=== PATIENT | female | born 1965 | race Caucasian/White ===

== ENCOUNTER 2017-11-06 15:17 | Inpatient (IN) | payer MEDICAID ==
[~2017-11-06] VITALS: Ht 162.6 cm; Wt 72.6 kg
[2017-11-06 15:29] VITALS: BP 124/70
[2017-11-06] MEDS ORDERED: LORazepam 2 MG TABLET PO PRN (16:00)
[2017-11-06] MEDS ORDERED: ZOLPIDEM TARTRATE 10 MG TABLET PO PRN (16:00)
[2017-11-06] MEDS ORDERED: HALOPERIDOL 5 MG TABLET PO PRN (16:00)
[2017-11-06] MEDS ORDERED: LEVO50 PO (16:45)
[2017-11-06] MEDS ORDERED: MUPI15CR TP (16:45)
[2017-11-06] MEDS ORDERED: NORG1TAB12 PO (16:45)
[2017-11-06] MEDS ORDERED: IBUP-1506 PO (16:45)
[2017-11-06] MEDS ORDERED: GABA-531 PO (16:45)
[2017-11-06] MEDS ORDERED: VITAD1000 PO (16:45)
[2017-11-06] MEDS ORDERED: PSYL575P4 PO (16:45)
[2017-11-06] MEDS ORDERED: ACET-66 PO (16:45)
[2017-11-06] MEDS ORDERED: CYCL10 PO (16:45)
[2017-11-06] MEDS ORDERED: CLIN30GE14 TP (16:45)
[2017-11-06] MEDS ORDERED: BENZ142C8 TP (16:45)
[2017-11-06] MEDS ORDERED: MIRALAX PO (16:45)
[2017-11-06] MEDS ORDERED: KETO15CR2 TP (16:45)
[2017-11-06] MEDS ORDERED: MECL-111 PO (16:45)
[2017-11-06] MEDS ORDERED: LITH300T29 PO (16:45)
[2017-11-06] MEDS ORDERED: LIDO1KIT TD (16:45)
[2017-11-06 16:59] VITALS: BP 118/70
[2017-11-06] MEDS ORDERED: ACETAMINOPHEN 500 MG TABLET PO PRN (18:15)
[2017-11-06] MEDS ORDERED: MAG HYDROX/AL HYDROX/SIMETH ES 30 ML SUSPENSION UDCUP PO PRN (18:30)
[2017-11-06] MEDS ORDERED: LOPERAMIDE HCL 2 MG CAPSULE PO PRN (18:30)
[2017-11-06] MEDS ORDERED: ALBUTEROL SULFATE HFA 90 MCG/PUFF 8 GM INHALER IH PRN (18:30)
[2017-11-06] MEDS ORDERED: MAGNESIUM HYDROXIDE SUSPENSION 30 ML UDCUP PO PRN (18:30)
[2017-11-06] MEDS ORDERED: PETROLATUM,WHITE 71 GM JELLY TP PRN (18:30)
[2017-11-06] MEDS ORDERED: BENZOCAINE/MENTHOL LOZENGE MM PRN (18:30)
[2017-11-06] MEDS ORDERED: ONDANSETRON HCL 4 MG TABLET PO PRN (18:30)
[2017-11-06] MEDS ORDERED: CloNIDine HCL 0.1 MG TABLET PO PRN (18:30)
[2017-11-06] MEDS ORDERED: BACITRACIN 28.4 GM OINTMENT TP PRN (18:30)
[2017-11-06] MEDS: GABAPENTIN 300 MG CAPSULE PO SCH (20:36)
[2017-11-06] MEDS: IBUPROFEN 400 MG TABLET PO PRN (20:37)
[2017-11-06] MEDS ORDERED: -LIDODERM PATCH NOTE- MISC SCH (21:00)
[2017-11-06] MEDS ORDERED: LITHIUM CARBONATE 600 MG CAPSULE PO SCH ×2 (21:00)
[2017-11-06] MEDS: POLYETHYLENE GLYCOL 3350 17 GM PACKET PO PRN (21:32)
[2017-11-07] MEDS: LIDOCAINE HCL 5% 36 GM OINTMENT TP PRN (04:08)
[2017-11-07 05:14] VITALS: BP 118/79
[2017-11-07] MEDS: LEVOTHYROXINE SODIUM 50 MCG TABLET PO SCH (06:35)
[2017-11-07 07:43] LABS: BASOPHILS % (AUTO) 0.3 % (0.0-2.0); EOSINOPHILS % (AUTO) 1.4 % (1.0-6.0); HEMATOCRIT 38.2 % (36-46); HEMOGLOBIN 13.5 g/dL (12.0-16.0); LYMPHOCYTES # (AUTO) 1.4 K/uL (1.0-4.8); LYMPHOCYTES % (AUTO) 23.8 % (22.0-44.0); MEAN CORPUSCULAR HEMOGLOBIN 33.5 pg (26.0-34.0); MEAN CORPUSCULAR HGB CONC 35.5 G/dL (31.0-37.0); MEAN CORPUSCULAR VOLUME 95 fL (80-100); MONOCYTES # (AUTO) 0.5 K/uL (0.1-1.0); MONOCYTES % (AUTO) 8.2 % (2.0-9.0); NEUTROPHILS # (AUTO) 3.8 K/uL (1.8-7.7); NEUTROPHILS % (AUTO) 66.3 % (40.0-70.0); PLATELET COUNT (AUTO) 233 K/uL (150-450); RED BLOOD CELL COUNT(AUTO) 4.04 MIL/uL (4.00-5.20); RED CELL DISTRIBUTION WIDTH 13.6 % (11.5-14.5)
[2017-11-07 08:14] VITALS: BP 122/70
[2017-11-07 08:18] LABS: HEMOGLOBIN A1C 5.7 % (4.5-6.2)
[2017-11-07] MEDS: LITHIUM CARBONATE 600 MG CAPSULE PO SCH (08:26)
[2017-11-07] MEDS: CHOLECALCIFEROL (VIT D3) 1,000 UNITS TABLET PO SCH (08:26)
[2017-11-07] MEDS: BENZOYL PEROXIDE 10% TP SCH (08:27)
[2017-11-07] MEDS: MUPIROCIN CALCIUM 2% 15 GM CREAM TP SCH (08:27)
[2017-11-07 08:34] LABS: ALANINE AMINOTRANSFERASE 33 U/L (12-78); ALBUMIN 3.2 g/dL (3.4-5.0); ALKALINE PHOSPHATASE 37 U/L (46-116); ANION GAP 6 mmol/L (8-16); ASPARTATE AMINOTRANSFERASE 18 U/L (15-37); BILIRUBIN,TOTAL 0.2 mg/dL (0.1-1.0); CALCIUM, TOTAL 8.9 mg/dL (8.8-10.5); CARBON DIOXIDE 26 mmol/L (22-29); CHLORIDE 105 mmol/L (98-107); CHOL/HDL RATIO 3.6 (3.9-5.7); CHOLESTEROL 205 mg/dL (131-200); CREATININE 0.87 mg/dL (0.60-1.30); FREE T4 (FREE THYROXINE) 0.91 ng/dL (0.76-1.46); GLOMERULAR FILTR. RATE CALC > 60 mL/min (>60); GLUCOSE,RANDOM 98 mg/dL (70-110); HDL CHOLESTEROL 57 mg/dL (40-60); LDL CHOL (CALC.) 128 mg/dL (0-130); SODIUM SERUM 137 mmol/L (136-145); THYROID STIMULATING HORMONE 4.67 uIU/mL (0.36-3.74); TOTAL PROTEIN, SERUM 6.1 g/dL (6.4-8.2); TRIGLYCERIDES 98 mg/dL (15-150); UREA NITROGEN, BLOOD 13 mg/dL (7-18)
[2017-11-07] MEDS: KETOCONAZOLE 2% 15 GM CREAM TP SCH ×2 (08:45→17:00)
[2017-11-07] MEDS: CYCLOBENZAPRINE HCL 10 MG TABLET PO SCH ×2 (08:45→17:00)
[2017-11-07] MEDS ORDERED: DOCUSATE SODIUM 100 MG CAPSULE PO SCH (09:00)
[2017-11-07] MEDS ORDERED: MECLIZINE HCL 25 MG TABLET PO SCH (09:00)
[2017-11-07] MEDS ORDERED: PSYLLIUM SEED ORANGE SF 5.8 GM/PACKET PO SCH (09:00)
[2017-11-07] MEDS ORDERED: LIDOCAINE HCL 5% TRANSDERMAL PATCH TD SCH (09:00)
[2017-11-07] MEDS ORDERED: OMEPRAZOLE 20 MG CAPSULE PO SCH (09:00)
[2017-11-07 10:43] VITALS: BP 123/68
[2017-11-07] MEDS: IBUPROFEN 400 MG TABLET PO PRN ×2 (11:09→20:29)
[2017-11-07] MEDS: POLYETHYLENE GLYCOL 3350 17 GM PACKET PO PRN (11:10)
[2017-11-07 16:08] VITALS: BP 125/75
[2017-11-07] MEDS: GABAPENTIN 300 MG CAPSULE PO SCH (20:22)
[2017-11-07 20:29] VITALS: BP 122/80
[2017-11-08 01:52] VITALS: BP 118/68
[2017-11-08] MEDS: IBUPROFEN 400 MG TABLET PO PRN (03:13)
[2017-11-08] MEDS: LEVOTHYROXINE SODIUM 50 MCG TABLET PO SCH (06:36)
[2017-11-08 08:43] VITALS: BP 137/69
[2017-11-08] MEDS: CYCLOBENZAPRINE HCL 10 MG TABLET PO SCH ×2 (09:00→16:22)
[2017-11-08] MEDS: KETOCONAZOLE 2% 15 GM CREAM TP SCH ×2 (09:00→16:25)
[2017-11-08] MEDS: LITHIUM CARBONATE 600 MG CAPSULE PO SCH (09:06)
[2017-11-08] MEDS: PSYLLIUM SEED ORANGE SF 5.8 GM/PACKET PO SCH ×2 (09:06→16:22)
[2017-11-08] MEDS: DOCUSATE SODIUM 100 MG CAPSULE PO SCH ×2 (09:06→16:22)
[2017-11-08] MEDS: CHOLECALCIFEROL (VIT D3) 1,000 UNITS TABLET PO SCH (09:06)
[2017-11-08] MEDS: POLYETHYLENE GLYCOL 3350 17 GM PACKET PO SCH ×2 (09:06→22:32)
[2017-11-08] MEDS: BENZOYL PEROXIDE 10% TP SCH (09:08)
[2017-11-08] MEDS: MUPIROCIN CALCIUM 2% 15 GM CREAM TP SCH (09:08)
[2017-11-08] MEDS: IBUPROFEN 800 MG TABLET PO SCH ×2 (09:14→16:22)
[2017-11-08] MEDS: LIDOCAINE HCL 5% 36 GM OINTMENT TP PRN (09:27)
[2017-11-08] MEDS ORDERED: ACETAMINOPHEN 500 MG TABLET PO PRN (10:15)
[2017-11-08] MEDS: ACETAMINOPHEN 325 MG TABLET PO PRN (15:01)
[2017-11-08 16:11] VITALS: BP 140/80
[2017-11-08] MEDS: CETIRIZINE HCL 10 MG TABLET PO SCH (16:22)
[2017-11-08] MEDS: GABAPENTIN 300 MG CAPSULE PO SCH (20:16)
[2017-11-09 01:11] VITALS: BP 116/97
[2017-11-09] MEDS: ACETAMINOPHEN 325 MG TABLET PO PRN (03:44)
[2017-11-09] MEDS: LEVOTHYROXINE SODIUM 50 MCG TABLET PO SCH (06:46)
[2017-11-09] MEDS: IBUPROFEN 800 MG TABLET PO SCH ×2 (08:29→16:36)
[2017-11-09] MEDS: CYCLOBENZAPRINE HCL 10 MG TABLET PO SCH ×2 (08:29→16:36)
[2017-11-09] MEDS: CHOLECALCIFEROL (VIT D3) 1,000 UNITS TABLET PO SCH (08:29)
[2017-11-09] MEDS: POLYETHYLENE GLYCOL 3350 17 GM PACKET PO SCH ×2 (08:30→16:36)
[2017-11-09] MEDS: CETIRIZINE HCL 10 MG TABLET PO SCH (08:30)
[2017-11-09] MEDS: LITHIUM CARBONATE 600 MG CAPSULE PO SCH (08:30)
[2017-11-09] MEDS: PSYLLIUM SEED ORANGE SF 5.8 GM/PACKET PO SCH ×2 (08:30→16:36)
[2017-11-09] MEDS: DOCUSATE SODIUM 100 MG CAPSULE PO SCH ×2 (08:30→16:36)
[2017-11-09] MEDS: MUPIROCIN CALCIUM 2% 15 GM CREAM TP SCH (08:34)
[2017-11-09] MEDS: KETOCONAZOLE 2% 15 GM CREAM TP SCH ×2 (08:34→16:50)
[2017-11-09] MEDS: BENZOYL PEROXIDE 10% TP SCH (08:34)
[2017-11-09 09:54] VITALS: BP 129/80
[2017-11-09 16:00] VITALS: BP 123/76
[2017-11-09] MEDS: CLINDAMYCIN PHOS 1% TP SCH (16:37)
[2017-11-09] MEDS: GABAPENTIN 300 MG CAPSULE PO SCH (20:46)
[2017-11-10 01:06] VITALS: BP 110/68
[2017-11-10 03:56] VITALS: BP 124/81
[2017-11-10] MEDS: ACETAMINOPHEN 325 MG TABLET PO PRN (03:59)
[2017-11-10] MEDS: LEVOTHYROXINE SODIUM 50 MCG TABLET PO SCH (06:45)
[2017-11-10] MEDS: POLYETHYLENE GLYCOL 3350 17 GM PACKET PO SCH ×2 (08:19→16:55)
[2017-11-10] MEDS: BENZOYL PEROXIDE 10% TP SCH (08:20)
[2017-11-10] MEDS: CLINDAMYCIN PHOS 1% TP SCH ×2 (08:20→16:55)
[2017-11-10] MEDS: PSYLLIUM SEED ORANGE SF 5.8 GM/PACKET PO SCH ×2 (08:20→16:55)
[2017-11-10] MEDS: MUPIROCIN CALCIUM 2% 15 GM CREAM TP SCH (08:20)
[2017-11-10] MEDS: KETOCONAZOLE 2% 15 GM CREAM TP SCH ×2 (08:20→16:56)
[2017-11-10] MEDS: CYCLOBENZAPRINE HCL 10 MG TABLET PO SCH ×2 (08:21→16:54)
[2017-11-10] MEDS: CETIRIZINE HCL 10 MG TABLET PO SCH (08:21)
[2017-11-10] MEDS: CHOLECALCIFEROL (VIT D3) 1,000 UNITS TABLET PO SCH (08:21)
[2017-11-10] MEDS: DOCUSATE SODIUM 100 MG CAPSULE PO SCH ×2 (08:21→16:55)
[2017-11-10] MEDS: IBUPROFEN 800 MG TABLET PO SCH ×2 (08:21→16:55)
[2017-11-10] MEDS: LITHIUM CARBONATE 600 MG CAPSULE PO SCH (08:21)
[2017-11-10 08:35] VITALS: BP 124/77
[2017-11-10] MEDS: CALCIUM POLYCARBOPHIL 625 MG TABLET PO SCH (09:00)
[2017-11-10 16:26] VITALS: BP 125/80
[2017-11-10] MEDS: GABAPENTIN 300 MG CAPSULE PO SCH (20:40)
[2017-11-11 02:37] VITALS: BP 125/75
[2017-11-11] MEDS: ACETAMINOPHEN 325 MG TABLET PO PRN ×2 (02:40→20:42)
[2017-11-11] MEDS: LEVOTHYROXINE SODIUM 50 MCG TABLET PO SCH (06:34)
[2017-11-11] MEDS: DOCUSATE SODIUM 100 MG CAPSULE PO SCH ×2 (08:41→16:01)
[2017-11-11] MEDS: IBUPROFEN 800 MG TABLET PO SCH ×2 (08:41→16:01)
[2017-11-11] MEDS: CHOLECALCIFEROL (VIT D3) 1,000 UNITS TABLET PO SCH (08:41)
[2017-11-11] MEDS: CYCLOBENZAPRINE HCL 10 MG TABLET PO SCH ×2 (08:41→20:42)
[2017-11-11] MEDS: CETIRIZINE HCL 10 MG TABLET PO SCH (08:42)
[2017-11-11] MEDS: MUPIROCIN CALCIUM 2% 15 GM CREAM TP SCH (08:46)
[2017-11-11] MEDS: KETOCONAZOLE 2% 15 GM CREAM TP SCH ×2 (08:46→16:05)
[2017-11-11] MEDS: BENZOYL PEROXIDE 10% TP SCH (08:46)
[2017-11-11] MEDS: CLINDAMYCIN PHOS 1% TP SCH ×2 (08:46→16:05)
[2017-11-11] MEDS: POLYETHYLENE GLYCOL 3350 17 GM PACKET PO SCH ×2 (08:46→16:01)
[2017-11-11] MEDS: PSYLLIUM SEED ORANGE SF 5.8 GM/PACKET PO SCH ×2 (08:47→16:01)
[2017-11-11] MEDS: CALCIUM POLYCARBOPHIL 625 MG TABLET PO SCH (08:47)
[2017-11-11 08:57] VITALS: BP 122/73
[2017-11-11] MEDS ORDERED: LITHIUM CARBONATE 600 MG CAPSULE PO SCH (09:00)
[2017-11-11] MEDS: LITHIUM CARBONATE 300 MG CAPSULE PO SCH (09:43)
[2017-11-11 16:04] VITALS: BP 125/74
[2017-11-11 20:42] VITALS: BP 118/72
[2017-11-11] MEDS: GABAPENTIN 300 MG CAPSULE PO SCH (20:42)
[2017-11-12 05:11] VITALS: BP 123/79
[2017-11-12] MEDS: LEVOTHYROXINE SODIUM 50 MCG TABLET PO SCH (06:47)
[2017-11-12] MEDS: CHOLECALCIFEROL (VIT D3) 1,000 UNITS TABLET PO SCH (08:18)
[2017-11-12] MEDS: DOCUSATE SODIUM 100 MG CAPSULE PO SCH ×2 (08:18→16:43)
[2017-11-12] MEDS: PSYLLIUM SEED ORANGE SF 5.8 GM/PACKET PO SCH ×2 (08:19→16:43)
[2017-11-12] MEDS: LITHIUM CARBONATE 300 MG CAPSULE PO SCH (08:19)
[2017-11-12] MEDS: POLYETHYLENE GLYCOL 3350 17 GM PACKET PO SCH ×2 (08:19→16:43)
[2017-11-12] MEDS: CLINDAMYCIN PHOS 1% TP SCH ×2 (08:20→16:57)
[2017-11-12] MEDS: KETOCONAZOLE 2% 15 GM CREAM TP SCH ×2 (08:20→16:58)
[2017-11-12] MEDS: MUPIROCIN CALCIUM 2% 15 GM CREAM TP SCH (08:21)
[2017-11-12] MEDS: BENZOYL PEROXIDE 10% TP SCH (08:21)
[2017-11-12 08:22] VITALS: BP 121/70
[2017-11-12] MEDS: IBUPROFEN 800 MG TABLET PO SCH ×2 (08:29→16:42)
[2017-11-12] MEDS: CALCIUM POLYCARBOPHIL 625 MG TABLET PO SCH (08:29)
[2017-11-12] MEDS: ACETAMINOPHEN 325 MG TABLET PO PRN (13:05)
[2017-11-12 16:02] VITALS: BP 122/68
[2017-11-12] MEDS: CETIRIZINE HCL 10 MG TABLET PO SCH (20:31)
[2017-11-12] MEDS: GABAPENTIN 300 MG CAPSULE PO SCH (20:31)
[2017-11-12] MEDS: CYCLOBENZAPRINE HCL 10 MG TABLET PO SCH (20:31)
[2017-11-13 01:13] VITALS: BP 121/75
[2017-11-13 02:15] VITALS: BP 132/87
[2017-11-13] MEDS: ACETAMINOPHEN 325 MG TABLET PO PRN ×2 (02:19→15:43)
[2017-11-13] MEDS: LEVOTHYROXINE SODIUM 50 MCG TABLET PO SCH (06:42)
[2017-11-13] MEDS: IBUPROFEN 800 MG TABLET PO SCH ×2 (08:36→17:22)
[2017-11-13] MEDS: CALCIUM POLYCARBOPHIL 625 MG TABLET PO SCH (08:36)
[2017-11-13] MEDS: PSYLLIUM SEED ORANGE SF 5.8 GM/PACKET PO SCH ×2 (08:36→17:22)
[2017-11-13] MEDS: BENZOYL PEROXIDE 10% TP SCH (08:36)
[2017-11-13] MEDS: LITHIUM CARBONATE 300 MG CAPSULE PO SCH (08:36)
[2017-11-13] MEDS: POLYETHYLENE GLYCOL 3350 17 GM PACKET PO SCH ×2 (08:36→17:22)
[2017-11-13] MEDS: CHOLECALCIFEROL (VIT D3) 1,000 UNITS TABLET PO SCH (08:36)
[2017-11-13] MEDS: DOCUSATE SODIUM 100 MG CAPSULE PO SCH ×2 (08:36→17:22)
[2017-11-13 08:37] VITALS: BP 114/70
[2017-11-13] MEDS: MUPIROCIN CALCIUM 2% 15 GM CREAM TP SCH (08:37)
[2017-11-13] MEDS: CLINDAMYCIN PHOS 1% TP SCH ×2 (08:37→17:00)
[2017-11-13] MEDS: KETOCONAZOLE 2% 15 GM CREAM TP SCH ×2 (08:37→17:00)
[2017-11-13 15:43] VITALS: BP 124/76
[2017-11-13 16:01] VITALS: BP 126/74
[2017-11-13] MEDS: CYCLOBENZAPRINE HCL 10 MG TABLET PO SCH (20:07)
[2017-11-13] MEDS: CETIRIZINE HCL 10 MG TABLET PO SCH (20:07)
[2017-11-13] MEDS: GABAPENTIN 300 MG CAPSULE PO SCH (20:07)
[2017-11-14 05:20] VITALS: BP 118/77
[2017-11-14] MEDS: LEVOTHYROXINE SODIUM 50 MCG TABLET PO SCH (06:58)
[2017-11-14 08:48] VITALS: BP 126/78
[2017-11-14] MEDS: CLINDAMYCIN PHOS 1% TP SCH ×2 (09:00→17:00)
[2017-11-14] MEDS: BENZOYL PEROXIDE 10% TP SCH (09:00)
[2017-11-14] MEDS: MUPIROCIN CALCIUM 2% 15 GM CREAM TP SCH (09:00)
[2017-11-14] MEDS: KETOCONAZOLE 2% 15 GM CREAM TP SCH ×2 (09:00→16:50)
[2017-11-14] MEDS: POLYETHYLENE GLYCOL 3350 17 GM PACKET PO SCH ×2 (09:29→16:51)
[2017-11-14] MEDS: PSYLLIUM SEED ORANGE SF 5.8 GM/PACKET PO SCH ×2 (09:29→17:00)
[2017-11-14] MEDS: LITHIUM CARBONATE 300 MG CAPSULE PO SCH (09:29)
[2017-11-14] MEDS: DOCUSATE SODIUM 100 MG CAPSULE PO SCH ×2 (09:30→16:49)
[2017-11-14] MEDS: CHOLECALCIFEROL (VIT D3) 1,000 UNITS TABLET PO SCH (09:30)
[2017-11-14] MEDS: IBUPROFEN 800 MG TABLET PO SCH ×2 (09:30→16:49)
[2017-11-14] MEDS: CALCIUM POLYCARBOPHIL 625 MG TABLET PO SCH (09:30)
[2017-11-14] MEDS ORDERED: *NON-FORMULARY MED [ENTER DRUG, DOSE, FREQ IN COMMENTS] CLINICAL ONE (11:30)
[2017-11-14 16:20] VITALS: BP 123/75
[2017-11-14] MEDS ORDERED: NON FORMULARY MEDICATION - TABLET PO SCH (21:30)
[2017-11-14] MEDS: CETIRIZINE HCL 10 MG TABLET PO SCH (21:33)
[2017-11-14] MEDS: GABAPENTIN 300 MG CAPSULE PO SCH (21:33)
[2017-11-14] MEDS: CYCLOBENZAPRINE HCL 10 MG TABLET PO SCH (21:33)
[2017-11-14] MEDS: NORGESTIMATE PO SCH (21:35)
[2017-11-14] MEDS: ETHINYL ESTRADIOL PO SCH (21:35)
[2017-11-14] MEDS: ACETAMINOPHEN 325 MG TABLET PO PRN (21:40)
[2017-11-15 03:50] VITALS: BP 120/70
[2017-11-15] MEDS: LEVOTHYROXINE SODIUM 50 MCG TABLET PO SCH (05:45)
[2017-11-15] MEDS: ACETAMINOPHEN 325 MG TABLET PO PRN ×2 (05:46→22:05)
[2017-11-15 08:07] VITALS: BP 116/82
[2017-11-15] MEDS ORDERED: ETHINYL ESTRADIOL PO SCH (09:00)
[2017-11-15] MEDS: PSYLLIUM SEED ORANGE SF 5.8 GM/PACKET PO SCH ×2 (09:00→17:00)
[2017-11-15] MEDS ORDERED: NORGESTIMATE PO SCH (09:00)
[2017-11-15] MEDS: POLYETHYLENE GLYCOL 3350 17 GM PACKET PO SCH ×2 (09:20→17:13)
[2017-11-15] MEDS: LITHIUM CARBONATE 300 MG CAPSULE PO SCH (09:21)
[2017-11-15] MEDS: CHOLECALCIFEROL (VIT D3) 1,000 UNITS TABLET PO SCH (09:21)
[2017-11-15] MEDS: DOCUSATE SODIUM 100 MG CAPSULE PO SCH ×2 (09:21→17:13)
[2017-11-15] MEDS: CALCIUM POLYCARBOPHIL 625 MG TABLET PO SCH (09:21)
[2017-11-15] MEDS: IBUPROFEN 800 MG TABLET PO SCH ×2 (09:21→17:13)
[2017-11-15] MEDS: KETOCONAZOLE 2% 15 GM CREAM TP SCH ×2 (09:28→17:18)
[2017-11-15] MEDS: BENZOYL PEROXIDE 10% TP SCH (09:29)
[2017-11-15] MEDS: MUPIROCIN CALCIUM 2% 15 GM CREAM TP SCH (09:29)
[2017-11-15] MEDS: CLINDAMYCIN PHOS 1% TP SCH ×2 (09:30→17:18)
[2017-11-15 16:36] VITALS: BP 129/71
[2017-11-15] MEDS: LIDOCAINE HCL 5% 36 GM OINTMENT TP PRN (17:25)
[2017-11-15] MEDS: CYCLOBENZAPRINE HCL 10 MG TABLET PO SCH (20:59)
[2017-11-15] MEDS: GABAPENTIN 300 MG CAPSULE PO SCH (20:59)
[2017-11-15] MEDS: CETIRIZINE HCL 10 MG TABLET PO SCH (20:59)
[2017-11-15] MEDS: ETHINYL ESTRADIOL PO SCH (21:00)
[2017-11-15] MEDS: NORGESTIMATE PO SCH (21:00)
[2017-11-16 03:32] VITALS: BP 138/78
[2017-11-16] MEDS: LEVOTHYROXINE SODIUM 50 MCG TABLET PO SCH (05:34)
[2017-11-16] MEDS: CALCIUM POLYCARBOPHIL 625 MG TABLET PO SCH (08:16)
[2017-11-16] MEDS: POLYETHYLENE GLYCOL 3350 17 GM PACKET PO SCH ×2 (08:16→16:44)
[2017-11-16] MEDS: PSYLLIUM SEED ORANGE SF 5.8 GM/PACKET PO SCH ×2 (08:16→16:48)
[2017-11-16] MEDS: IBUPROFEN 800 MG TABLET PO SCH ×2 (08:16→16:44)
[2017-11-16] MEDS: LITHIUM CARBONATE 300 MG CAPSULE PO SCH (08:16)
[2017-11-16] MEDS: DOCUSATE SODIUM 100 MG CAPSULE PO SCH ×2 (08:16→16:44)
[2017-11-16] MEDS: CHOLECALCIFEROL (VIT D3) 1,000 UNITS TABLET PO SCH (08:16)
[2017-11-16 08:21] VITALS: BP 122/71
[2017-11-16] MEDS: BENZOYL PEROXIDE 10% TP SCH (08:21)
[2017-11-16] MEDS: MUPIROCIN CALCIUM 2% 15 GM CREAM TP SCH (08:22)
[2017-11-16] MEDS: KETOCONAZOLE 2% 15 GM CREAM TP SCH ×2 (08:23→17:00)
[2017-11-16] MEDS: CLINDAMYCIN PHOS 1% TP SCH ×2 (08:24→17:00)
[2017-11-16] MEDS ORDERED: PSYL660P17 PO ×3 (08:30→11:39)
[2017-11-16] MEDS ORDERED: DOCU-119 PO (10:33)
[2017-11-16] MEDS ORDERED: CALC625T PO (11:41)
[2017-11-16] MEDS ORDERED: CETI5TAB12 PO (11:41)
[2017-11-16] MEDS: ACETAMINOPHEN 325 MG TABLET PO PRN (12:18)
[2017-11-16 16:40] VITALS: BP 122/69
[2017-11-16] MEDS: CYCLOBENZAPRINE HCL 10 MG TABLET PO SCH (20:38)
[2017-11-16] MEDS: GABAPENTIN 300 MG CAPSULE PO SCH (20:38)
[2017-11-16] MEDS: CETIRIZINE HCL 10 MG TABLET PO SCH (20:38)
[2017-11-16] MEDS: ETHINYL ESTRADIOL PO SCH (20:45)
[2017-11-16] MEDS: NORGESTIMATE PO SCH (20:45)
[2017-11-17 01:06] VITALS: BP 128/72
[2017-11-17 02:51] VITALS: BP 136/70
[2017-11-17] MEDS: ACETAMINOPHEN 325 MG TABLET PO PRN (02:52)
[2017-11-17] MEDS: LEVOTHYROXINE SODIUM 50 MCG TABLET PO SCH (05:58)
[2017-11-17 08:02] VITALS: BP 140/75
[2017-11-17] MEDS: CALCIUM POLYCARBOPHIL 625 MG TABLET PO SCH (08:12)
[2017-11-17] MEDS: IBUPROFEN 800 MG TABLET PO SCH (08:13)
[2017-11-17] MEDS: LITHIUM CARBONATE 300 MG CAPSULE PO SCH (08:13)
[2017-11-17] MEDS: DOCUSATE SODIUM 100 MG CAPSULE PO SCH (08:13)
[2017-11-17] MEDS: POLYETHYLENE GLYCOL 3350 17 GM PACKET PO SCH (08:13)
[2017-11-17] MEDS: CHOLECALCIFEROL (VIT D3) 1,000 UNITS TABLET PO SCH (08:13)
[2017-11-17] MEDS: PSYLLIUM SEED ORANGE SF 5.8 GM/PACKET PO SCH (08:13)
[2017-11-17] MEDS: KETOCONAZOLE 2% 15 GM CREAM TP SCH ×2 (08:18→09:24)
[2017-11-17] MEDS: BENZOYL PEROXIDE 10% TP SCH (08:18)
[2017-11-17] MEDS: CLINDAMYCIN PHOS 1% TP SCH (08:18)
== END 2017-11-17 12:35 | disposition home or self-care (01) | DRG 753 ==
LOC: B2S 16:16
PROVIDERS: ADMIT Psychiatry & Neurology Psychiatry; ATTEND Psychiatry & Neurology Psychiatry
DX: F31.9 Bipolar disorder, unspecified (principal); E55.9 Vitamin D deficiency, unspecified; E03.9 Hypothyroidism, unspecified; F12.90 Cannabis use, unspecified, uncomplicated; F23 Brief psychotic disorder; G47.00 Insomnia, unspecified; G89.29 Other chronic pain; K21.9 Gastro-esophageal reflux disease without esophagitis; K59.09 Other constipation; L73.9 Follicular disorder, unspecified; M54.9 Dorsalgia, unspecified; Z88.1 Allergy status to other antibiotic agents; Z91.040 Latex allergy status
CPT/HCPCS: 83036; 84439; 84443